=== PATIENT | male | born 1950 | race Caucasian/White ===

== ENCOUNTER → 2016-11-02 | Outpatient (CLI) | payer OTHER ==
[~2016-11-02] MED LIST: APIX1TAB3 PO; FLEC100T21 PO; LISI20TA3 PO; METO200T32 PO
[2016-11-02 09:32] LABS: HEMATOCRIT 43.4 % (42-52); MEAN CELL VOLUME 89.5 fL (80-100); MEAN CORPUSCULAR HEMOGLOBIN 29.7 pg (25-34); MEAN CORPUSCULAR HGB CONC 33.2 g/dl (32-36); PLATELET COUNT 215 K/uL (130-400); RED BLOOD COUNT 4.85 M/uL (4.7-6.1); WHITE BLOOD COUNT 7.13 K/uL (4.8-10.8)
[2016-11-02 09:55] LABS: ALB/GLOB RATIO 1.4 (0.9-2); ALKALINE PHOSPHATASE 81 U/L (45-117); ALT/SGPT 32 U/L (12-78); AST/SGOT 27 U/L (15-37); BLOOD UREA NITROGEN 27 mg/dl (7-18); CALCIUM 9.1 mg/dl (8.5-10.1); CARBON DIOXIDE 31 mmol/L (21-32); CHLORIDE 103 mmol/L (98-107); CREATININE 0.98 mg/dl (0.60-1.40); GLUCOSE 94 mg/dl (70-99); POTASSIUM 4.2 mmol/L (3.5-5.1); SODIUM 140 mmol/L (136-145)
== END | disposition home or self-care (01) ==
LOC: C.LAB1850 08:10
PROVIDERS: ATTEND Internal Medicine Cardiovascular Disease
DX: I48.91 Unspecified atrial fibrillation (principal); I10 Essential (primary) hypertension; Z79.01 Long term (current) use of anticoagulants; Z51.81 Encounter for therapeutic drug level monitoring

== ENCOUNTER → 2017-05-07 | Outpatient (CLI) | payer OTHER ==
[~2017-05-07] MED LIST changes: +METO1TAB71 PO; -METO200T32 PO
[2017-05-07 11:44] LABS: HEMATOCRIT 41.3 % (42-52); MEAN CELL VOLUME 90.2 fL (80-100); MEAN CORPUSCULAR HEMOGLOBIN 29.3 pg (25-34); MEAN CORPUSCULAR HGB CONC 32.4 g/dl (32-36); PLATELET COUNT 200 K/uL (130-400); RED BLOOD COUNT 4.58 M/uL (4.7-6.1); WHITE BLOOD COUNT 5.89 K/uL (4.8-10.8)
[2017-05-07 11:58] LABS: BLOOD UREA NITROGEN 22 mg/dl (7-18); BUN/CREATININE RATIO 23.1 (10-20); CALCIUM 9.4 mg/dl (8.5-10.1); CARBON DIOXIDE 26 mmol/L (21-32); CHLORIDE 105 mmol/L (98-107); CREATININE 0.96 mg/dl (0.60-1.40); GLUCOSE 102 mg/dl (70-99); POTASSIUM 3.8 mmol/L (3.5-5.1); SODIUM 141 mmol/L (136-145)
== END | disposition home or self-care (01) ==
LOC: C.LAB1850 10:08
PROVIDERS: ATTEND Internal Medicine Cardiovascular Disease
DX: Z00.00 Encounter for general adult medical examination without abnormal findings (principal); I48.91 Unspecified atrial fibrillation; I10 Essential (primary) hypertension; Z79.01 Long term (current) use of anticoagulants

== ENCOUNTER → 2017-11-20 | Outpatient (CLI) | payer OTHER, MEDICARE ==
[~2017-11-20] MED LIST changes: -METO1TAB71 PO; +METO200T32 PO
[2017-11-20 12:12] LABS: HEMATOCRIT 41.5 % (42-52); HEMOGLOBIN 13.8 g/dL (14.0-18.0); MEAN CELL VOLUME 90.6 fL (80-100); MEAN CORPUSCULAR HEMOGLOBIN 30.1 pg (25-34); MEAN CORPUSCULAR HGB CONC 33.3 g/dl (32-36); MEAN PLATELET VOLUME 10.4 fL (7.4-10.4); PLATELET COUNT 211 K/uL (130-400); RED CELL DISTRIBUTION WIDTH CV 13.5 % (11.5-14.5); RED CELL DISTRIBUTION WIDTH SD 44.6 fL (36.4-46.3); WHITE BLOOD COUNT 5.62 K/uL (4.8-10.8)
[2017-11-20 12:23] LABS: BLOOD UREA NITROGEN 26 mg/dl (7-18); CALCIUM 9.4 mg/dl (8.5-10.1); CARBON DIOXIDE 29 mmol/L (21-32); GLUCOSE 85 mg/dl (70-99); POTASSIUM 3.9 mmol/L (3.5-5.1); SODIUM 139 mmol/L (136-145)
== END | disposition home or self-care (01) ==
LOC: C.LAB1850 10:09
PROVIDERS: ATTEND Internal Medicine Cardiovascular Disease
DX: I48.91 Unspecified atrial fibrillation (principal); I10 Essential (primary) hypertension; Z79.01 Long term (current) use of anticoagulants

== ENCOUNTER 2018-03-18 07:58 | Emergency (ER) | payer OTHER, MEDICARE ==
[~2018-03-18] VITALS: Ht 190.5 cm; Wt 79.6 kg
[2018-03-18 08:08] VITALS: Ht 190.5 cm; Wt 79.6 kg
[2018-03-18] MEDS ORDERED: XARELTO PO (08:49)
[2018-03-18] MEDS ORDERED: LOSARTAN PO (08:49)
[2018-03-18 08:54] LABS: BASO % 0.3 %; BASO ABS # 0.02 K/uL (0-0.2); EOS % 1.5 %; EOS ABS # 0.11 K/uL (0-0.5); HEMATOCRIT 40.9 % (42-52); HEMOGLOBIN 13.8 g/dL (14.0-18.0); IG# 0.02 K/uL (0.00-0.02); LYMPH % 21.9 %; LYMPH ABS # 1.62 K/uL (1.2-3.4); MEAN CELL VOLUME 89.1 fL (80-100); MEAN CORPUSCULAR HEMOGLOBIN 30.1 pg (25-34); MEAN CORPUSCULAR HGB CONC 33.7 g/dl (32-36); MEAN PLATELET VOLUME 9.3 fL (7.4-10.4); MONO % 7.7 %; MONO ABS # 0.57 K/uL (0.11-0.59); NEUT % 68.3 %; NEUT ABS # 5.05 K/uL (1.4-6.5); PLATELET COUNT 219 K/uL (130-400); RED CELL DISTRIBUTION WIDTH CV 13.5 % (11.5-14.5); RED CELL DISTRIBUTION WIDTH SD 44.2 fL (36.4-46.3); WHITE BLOOD COUNT 7.39 K/uL (4.8-10.8)
[2018-03-18 09:03] LABS: PTT PATIENT 28.2 SECONDS (21.0-31.0)
[2018-03-18 09:10] LABS: CALCIUM 8.9 mg/dl (8.5-10.1); CREATININE 0.9 mg/dl (0.60-1.40); POTASSIUM 3.9 mmol/L (3.5-5.1); URIC ACID 6.1 mg/dl (2.6-7.2)
--- NOTE | 2018-03-18 09:13 | DIAGNOSTIC IMAGING REPORT ---
R FOOT MIN 3 VIEWS ROUTINE CLINICAL HISTORY: R foot pain COMPARISON STUDY: None. FINDINGS: No fracture or dislocation within the right foot. Mild diffuse soft tissue swelling. The Lisfranc joint is well aligned. Mild osteoarthritis within the right foot. Plantar heel spur. IMPRESSION: Mild diffuse soft tissue swelling within the right foot. No fractures. Electronically signed by: Ousmane Hernandez M.D. 03/18/2018 9:12 AM Dictated Date/Time: 03/18/2018 9:11 AM
--- NOTE | 2018-03-18 09:15 | DIAGNOSTIC IMAGING REPORT ---
RIGHT ANKLE 3 VIEWS HISTORY: R ankle pain COMPARISON: None. FINDINGS: There is no fracture or dislocation. There is diffuse soft tissue swelling. The bones are osteopenic. Mild degenerative changes at the ankle joint. No radiopaque foreign bodies. IMPRESSION: No fractures within the right ankle. Diffuse soft tissue swelling. Electronically signed by: Ousmane Hernandez M.D. 03/18/2018 9:13 AM Dictated Date/Time: 03/18/2018 9:13 AM
--- NOTE | 2018-03-18 09:26 | DIAGNOSTIC IMAGING REPORT ---
R VENOUS DOPP LOWER EXT UNILAT CLINICAL HISTORY: 67 years-old Male presenting with R lower leg/ankle/foot pain and swelling. TECHNIQUE: Real-time grayscale and color and spectral Doppler ultrasound imaging of the veins of the right lower extremity was performed. Compression and augmentation were also utilized. COMPARISON: None. FINDINGS: Right: Common femoral vein: Patent. Greater saphenous vein: Patent. Deep femoral vein: Patent. Femoral vein: Patent. Popliteal vein: Patent. Calf veins: Patent. Other: None. IMPRESSION: No evidence of deep venous thrombosis. Electronically signed by: Alon Ledezma M.D. 03/18/2018 9:25 AM Dictated Date/Time: 03/18/2018 9:25 AM
[2018-03-18 10:33] VITALS: BP 117/60; PULSE 50; TEMP 36.9; O2SAT 100
--- NOTE | 2018-03-18 12:54 | EMERGENCY ROOM VISIT NOTE ---
ED Visit Note First contact with patient: 08:11 Chief Complaint: Right foot and ankle pain with swelling of the lower leg, ankle and foot. History of Present Illness: Mr. Rinaldi is a 67-year-old white male who ambulates into the ED with the use of a cane complaining of right foot and ankle pain with lower leg, ankle and foot swelling. Starkly patient reports she has a history of osteoarthritis and gout. Patient reports 4-5 days ago he started noticing pain over the plantar surface of the foot just inferior to the first MTP joint. Within 2 days he noted that pain had resolved and now is having pain over the medial aspect of the calcaneus inferior to the ankle. This has been constant for the last 2 days. He reports at rest he is not experiencing any pain but with weightbearing and ambulation he reports he has severe pain that he describes as a sharp sensation. When he is experiencing pain he rates his discomfort 10/10. The pain is nonradiating. He has not taken any medications for pain prior to arrival at the hospital. Associated with his pain he has noted swelling over the distal third of the lower leg extending into the ankle and foot. Additionally he reports approximately 5 days ago he did strike the distal fibula just superior to the ankle on a car door and sustained a skin injury that is still present. He denies fevers, chills, sweats, skin eruptions, other foot trauma, back pain, hip pain, knee pain, previous significant injuries or surgeries to the ankle or foot, leg weakness/numbness/tingling. Review of Systems: As noted above in history of present illness. At least body systems were reviewed and found to be negative as noted above. Past Medical History: As previously noted, alcoholism, hypertension, atrial fibrillation, status post cystoscopy and unspecified right knee surgery. Current Medications: Marijuana, Allergies to Medications: Sulfa. Social History: Patient is currently retired; he feels safe in his home environment; he denies current alcohol use. Physical Examination: Vital Signs: Date Time Temp Pulse Resp B/P (MAP) Pulse Ox O2 Delivery O2 Flow Rate FiO2 03/18/18 10:33 36.9 50 20 117/60 100 03/18/18 09:32 50 20 117/60 100 03/18/18 08:08 36.9 56 20 133/70 100 Room Air GENERAL: 67-year-old male in mild to moderate distress due to pain, nontoxic- appearing, afebrile and hemodynamically stable. NEUROLOGICAL: Awake, alert and oriented to person, place and time. Answering questions appropriately and following commands. Good hand eye coordination. No focal motor sensory deficits. SKIN: Warm, dry and pink. Right Lower Leg: Just superior to the ankle patient has a roundish soft tissue injury from his strike with the car. This appears superficial. Just below the area is an area of erythema that is minimally tender and this is where the patient swelling starts for the ankle and foot. HEENT: Atraumatic and normocephalic. BACK: No tenderness over the bony spine. No CVA tenderness. THORAX: Lungs sounds are clear to auscultation and equal bilaterally with symmetrical chest wall. HEART: Regular rate and rhythm. No gallops, rubs or murmurs are appreciated. ABDOMEN: Flat, soft and nontender. Positive bowel sounds in all quadrants. No guarding, rigidity or organomegaly. RIGHT LOWER EXTREMITY: No gross bony deformity. No tenderness in the hip, thigh , knee. Over the distal aspect of the fibula patient has a soft tissue injury as noted above. It is minimally tender to palpation. Once again it is noted that just inferior there is mild erythema but the skin is not cellulitic. Extending inferiorly from this wound throughout the foot the ankle and foot are edematous but not erythematous. There is no calf tenderness or cords. He has full range of motion in flexion and extension of the knee, plantarflexion, dorsiflexion, inversion and eversion of the ankle and flexion and extension of all toes. Throughout the foot the skin was warm and pink and capillary refill was brisk. No ligamentous laxity at the level of the ankle. Minimal tenderness over the plantar surface of the first MTP joint and over the lateral aspect of the calcaneus. I do not appreciate any bony deformity or crepitus. ED Course: Patient is assessed as noted above. Patient's medication list was reviewed. Laboratory Testing: Test 03/18/18 08:40 Range/Units White Blood Count 7.39 4.8-10.8 K/uL Red Blood Count 4.59 4.7-6.1 M/uL Hemoglobin 13.8 14.0-18.0 g/dL Hematocrit 40.9 42-52 % Mean Corpuscular Volume 89.1 80-100 fL Mean Corpuscular Hemoglobin 30.1 25-34 pg Mean Corpuscular Hemoglobin Concent 33.7 32-36 g/dl Platelet Count 219 130-400 K/uL Mean Platelet Volume 9.3 7.4-10.4 fL Neutrophils (%) (Auto) 68.3 % Lymphocytes (%) (Auto) 21.9 % Monocytes (%) (Auto) 7.7 % Eosinophils (%) (Auto) 1.5 % Basophils (%) (Auto) 0.3 % Neutrophils # (Auto) 5.05 1.4-6.5 K/uL Lymphocytes # (Auto) 1.62 1.2-3.4 K/uL Monocytes # (Auto) 0.57 0.11-0.59 K/uL Eosinophils # (Auto) 0.11 0-0.5 K/uL Basophils # (Auto) 0.02 0-0.2 K/uL RDW Standard Deviation 44.2 36.4-46.3 fL RDW Coefficient of Variation 13.5 11.5-14.5 % Immature Granulocyte % (Auto) 0.3 % Immature Granulocyte # (Auto) 0.02 0.00-0.02 K/uL Prothrombin Time 10.0 9.0-12.0 SECONDS Prothromb Time International Ratio 1.0 0.9-1.1 Activated Partial Thromboplast Time 28.2 21.0-31.0 SECONDS Partial Thromboplastin Ratio 1.1 Sodium Level 138 136-145 mmol/L Potassium Level 3.9 3.5-5.1 mmol/L Chloride Level 104 98-107 mmol/L Carbon Dioxide Level 29 21-32 mmol/L Anion Gap 5.0 3-11 mmol/L Blood Urea Nitrogen 21 7-18 mg/dl Creatinine 0.90 0.60-1.40 mg/dl Est Creatinine Clear Calc Drug Dose 90.9 ml/min Estimated GFR () 102.8 Estimated GFR (Non- 88.7 BUN/Creatinine Ratio 23.4 10-20 Random Glucose 103 70-99 mg/dl Uric Acid 6.1 2.6-7.2 mg/dl Calcium Level 8.9 8.5-10.1 mg/dl Right Ankle X-Rays: Were read by myself and the radiologist showing no acute fractures or dislocations. Mild degenerative changes throughout the ankle. Bones are osteopenic. Diffuse soft tissue swelling. No foreign bodies. Right Foot X-Rays: Were read by myself and the radiologist showing no acute fractures or dislocations. Diffuse soft tissue swelling. Mild osteoarthritis within the right foot and a plantar heel spur. Right Lower Extremity Venous Doppler Ultrasound: Was reviewed by myself and read by the radiologist showing no evidence of deep vein thrombus. Patient was reassessed multiple times during his stay in the emergency department. Patient was placed in a compression stocking and trialed on a walking boot and postop shoe; he felt a postop shoe provided less pain and felt better on his foot. Patient's case was reviewed with Dr. Zuñiga; we agreed on diagnostic approach, treatment, disposition and plan. Patient was educated about today's findings and instructed on his treatment plan ; he verbalized understanding and agreement with this plan. Clinical Impression: Right ankle and foot pain. Right lower leg, ankle and foot swelling. Decision-Making: Initially my differential diagnosis I considered cellulitis, gout, ligamentous strain, muscle strain, DVT, fracture, dislocation and other causes. Disposition: Patient discharged home in stable condition; prior to departure he was reassessed and subjectively reported he was feeling better with ambulation and rated his overall discomfort 8/10. Plan: Patient was encouraged to continue his current medications as prescribed. Patient was encouraged to keep his foot elevated and use ice for pain and swelling. Patient was encouraged to use his postop shoe and stocking. Patient was encouraged use ibuprofen or acetaminophen as needed for pain. Patient was encouraged to have close follow-up with his family physician for recheck. Patient was encouraged return the ED for worsening/uncontrolled pain, worsening redness in the area of his soft tissue injury, fevers, worsening/uncontrolled swelling, foot weakness/numbness/tingling or any new/concerning symptoms.
--- NOTE | 2018-03-18 15:05 | EMERGENCY ROOM VISIT NOTE ---
ED Visit Note First contact with patient: 08:11 I have personally seen and evaluated the patient with the PA. I agree with the diagnosis and management decisions and have been personally involved in the case. Please see Geo Rutledge PA-C's notes for further details of the history, physical and visit.
== END 2018-03-18 10:36 | disposition home or self-care (01) ==
LOC: C.EDB 07:59
DX: M79.671 Pain in right foot (principal); M25.571 Pain in right ankle and joints of right foot; M79.89 Other specified soft tissue disorders; I10 Essential (primary) hypertension; I48.91 Unspecified atrial fibrillation; F10.21 Alcohol dependence, in remission

== ENCOUNTER → 2018-06-18 | Outpatient (CLI) | payer OTHER, MEDICARE ==
[~2018-06-18] MED LIST changes: -APIX1TAB3 PO; -LISI20TA3 PO; +LOSARTAN PO; -METO200T32 PO; +XARELTO PO
[2018-06-18 09:32] LABS: HEMATOCRIT 41.2 % (42-52); HEMOGLOBIN 13.6 g/dL (14.0-18.0); MEAN CELL VOLUME 90.7 fL (80-100); MEAN PLATELET VOLUME 10.6 fL (7.4-10.4); PLATELET COUNT 221 K/uL (130-400); RED CELL DISTRIBUTION WIDTH CV 13.8 % (11.5-14.5); RED CELL DISTRIBUTION WIDTH SD 45.8 fL (36.4-46.3); WHITE BLOOD COUNT 5.93 K/uL (4.8-10.8)
[2018-06-18 09:51] LABS: BLOOD UREA NITROGEN 21 mg/dl (7-18); CALCIUM 9.1 mg/dl (8.5-10.1); CARBON DIOXIDE 26 mmol/L (21-32); GLUCOSE 91 mg/dl (70-99); POTASSIUM 4.2 mmol/L (3.5-5.1); SODIUM 138 mmol/L (136-145)
== END | disposition home or self-care (01) ==
LOC: C.LAB1850 08:11
PROVIDERS: ATTEND Internal Medicine Cardiovascular Disease
DX: Z00.00 Encounter for general adult medical examination without abnormal findings (principal); I48.91 Unspecified atrial fibrillation; I10 Essential (primary) hypertension; Z79.01 Long term (current) use of anticoagulants; Z51.81 Encounter for therapeutic drug level monitoring

== ENCOUNTER 2022-04-20 10:03 | Observation (INO) ==
--- NOTE | 2022-04-15 21:23 | History and Physical Report ---
DATE OF ADMISSION: 04/20/2022 CHIEF COMPLAINT: Persistent progressive right knee pain and discomfort. 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 He has got a long history of knee problems. I scoped his knee back in January 2005. He did pretty well for the first 5 years and over the past 10 years, he reich s developed increased pain and discomfort in his knee. It is a constant pain. The more he is up and on it, the more it hurts. He limps more as the day goes on. He has nighttime discomfort. He has b een through extensive conservative treatment, cannot take NSAIDs at this point, due to being on Xarel to for cardiac issues. The shots do not help much. He would like to have his right knee fixed. Of note, he recently had his left shoulder replaced by Dr. Chao in December of this year. He has don e well. He was diagnosed with Lyme disease and treated medically for this. He has been at least 6 o r 7 months since his last antibiotics. PAST MEDICAL HISTORY: 1. History of chronic atrial fibrillation, on Xarelto. 2. Hypertension. 3. Elevated cholesterol. 4. Heart murmur. 5. History of Lyme disease. 6. Sleep apnea. PAST SURGICAL HISTORY: Include: 1. Right knee arthroscopy on 02/08/2005. 2. Colonoscopy. 3. Oral surgery. 4. Left shoulder replacement done by Dr. Chao in December 2021. ALLERGIES: SULFA. CURRENT MEDICATIONS: Include: 1. Flecainide. 2. Losartan. 3. Metoprolol. 4. Oxycodone. 5. Xarelto. 6. Tramadol. SOCIAL HISTORY: A 71-year-old male. He is . He does not smoke. FAMILY HISTORY: Noncontributory. REVIEW OF SYSTEMS: Significant for atrial fibrillation. He denies any recent chest pain or shortnes s of breath. He does have a history of Lyme disease and treated for this. No history of DVT or PE. PHYSICAL EXAMINATION: GENERAL: Shows a pleasant middle-aged male. Looks to be in good health. HEENT: Benign. NECK: Supple. No lymphadenopathy. LUNGS: Clear to auscultation. HEART: Regular rate and rhythm. ABDOMEN: Soft, nontender, nondistended. EXTREMITIES: Grossly neurovascularly intact except as follows: Examination of the right knee reveal s the patient walks with a slightly antalgic gait. He limps on the right side. He has varus alignme nt to his knee with a small varus thrust with weightbearing. Moderate-sized knee effusion. Range of motion 0 to 125. No instability. No pain with hip motion. X-RAYS: X-rays of the right knee were reviewed. It shows advanced right knee DJD. He has got compl ete loss of medial joint space. He has got osteophytes medially. He has subchondral sclerosis. Knee aspirate results were reviewed. It showed a white cell count of 3474. 31% polys. Crystal anal ysis is negative. Lyme test was negative. ASSESSMENT: A 71-year-old male with multiple medical comorbidities including atrial fibrillation, hy pertension, recent Lyme disease and sleep apnea with advanced knee degenerative joint disease. Histo ry of previous knee arthroscopy in the past. He has failed conservative measures and would like to h ave his right knee replaced. He does have a history of Lyme disease and we aspirated his knee and th ere are no signs of residual Lyme disease. PLAN: We will proceed with knee replacement. The risks and benefits of this procedure were explaine d to the patient to include but not limited to DVT, PE, , infection, neurological injury, vascul ar injury, bleeding problem, pain, limited range of motion, stiffness, failure to relieve symptoms, i ncomplete relief of symptoms, need for further surgery in the future, etc. The patient understands a nd desires to proceed. Informed consent was obtained. He is on Xarelto and he will need to stop it 3 days preop. We will use that postoperatively at a pro phylactic dose initially and then increase to therapeutic dose. He is planning on staying overnight. He is going to use [facility]. Job ID: [id number]
--- NOTE | 2022-04-17 14:08 | Anesthesiology Consultation ---
Date of Service April 17, 2022 Assessment & Plan (1) Encounter for pre-operative examination: - COVID screening: Per assessment on 04/17: No known COVID-19 positive contacts or current COVID-19 related symptoms. Travel screen negative x 2+ weeks. Patient vaccinated. Surgeon arranging preop COVID testing. Awaiting results. - Cardiology office visit (09/07/21): "Patient remains stable from a cardiac standpoint.. His exertional tolerance is stable. Patient does occasionally note some positional lightheadedness if he is bent over working in his garden and stands up suddenly. This resolves within a couple of seconds. It does not occur on a regular basis. Patient has not experienced any angina pectoris or anginal equivalent symptoms, overt signs or symptoms of heart failure, nor has he had a recurrent atrial fibrillation to his knowledge. Patient has not had any symptoms suggestive of stroke or mini stroke.. We reviewed his Echocardiogram dated 08/29/2021 in detail. The shows normal LV systolic funct ion, mild mitral regurgitation, and a mildly dilated right ventricle with normal RV systolic function. No significant change compared to 2017 echocardiogram." - S/P Left TSA reverse (01/13/22): LMA igel#5 + PNB at [facility]. No issues per post- op anesthesia progress note. Chart Review Chart Review: Acceptable Risk for Surgery (pending evaluation AM DOS) and Patient NOT seen in Pre Admission Testing History Surgery Operation Date: 04/20/22 08:50 Proposed Procedures p Right Total Knee Arthroplasty - Evan Henry MD Height/Weight Height: 6 ft 3 in Weight: 77.111 kg Allergies Allergy/AdvReac Type Severity Reaction Status Date / Time pollen extracts Allergy Unknown unknown Verified 04/17/22 12:35 Sulfa (Sulfonamide Allergy Unknown unknown Verified 04/17/22 12:35 Antibiotics) Medications Home Medications Medication Instructions Recorded Confirmed Last Taken flecainide 100 mg tablet 100 mg PO BID #180 tab 12/02/21 04/17/22 01/12/22 23:30 metoprolol succinate 50 mg 50 mg PO QPM #90 tab 12/02/21 04/17/22 01/12/22 16:30 tablet,extended release 24 hr rivaroxaban 20 mg tablet 20 mg PO QPM #90 tab 12/02/21 04/17/22 01/09/22 17:00 losartan 25 mg tablet 25 mg PO QPM 12/09/21 04/17/22 01/12/22 16:30 Wheeled Walker #1 ea 03/16/22 03/16/22 Unknown Medical Thc 1 dose INHALATION UD PRN 04/17/22 04/17/22 Unknown Past Medical History Medical History A-fib Dx 2013 Reason for Xarelto Follows with Dr. Sheldon Cardiomyopathy Tachycardia vs alcohol induced per [place] [facility] records, EF 60-65% on 08/2021 echo Gout HTN (hypertension) Controlled, stable per pt Chronic positional lightheadedness Lyme disease 2020 Osteoarthritis Sleep apnea No device Past Family History Family History Father Cerebellar ataxia Mother COPD (chronic obstructive pulmonary disease) Other No family history of adverse response to anesthesia Past Surgical History Surgical History History of arthroscopy of right knee History of cardioversion x2 History of colonoscopy History of left shoulder replacement Left TSA reverse (01/13/22): LMA igel#5 + PNB at [facility]. No issues per post-op anesthesia progress note. History of oral surgery tooth implant Social History Smoking Status: Never smoker Do You Dip or Chew Tobacco: No Hx Alcohol Use: No Hx Substance Use: Yes substance use type: marijuana Substance Use Type Other:: medical marijuana Lab Results Anesthesia Preop Results Results Anesthesia Widget: WBC 7.47 K/uL (4.8-10.8) 04/05/22 Hgb 13.6 g/dL (14.0-18.0) L 04/05/22 Hct 43.3 % (42-52) 04/05/22 Plt 290 K/uL (130-400) 04/05/22 Na 139 mmol/L (136-145) 04/05/22 K 4.1 mmol/L (3.5-5.1) 04/05/22 Cl 105 mmol/L (98-107) 04/05/22 CO2 28 mmol/L (21-32) 04/05/22 BUN 28 mg/dl (6-23) H 04/05/22 Creat 0.95 mg/dl (0.6-1.4) 04/05/22 Glucose Level 107 mg/dl (70-99(Fasting)) H 04/05/22 PT 10.8 Seconds (9.0-12.0) 04/05/22 PTT 29.6 Seconds (21.0-31.0) 04/05/22 INR 1.0 (0.9-1.1) 04/05/22 Blood Type A Positive 04/05/22 Antibody Screen NEGATIVE 04/05/22 Testing Electrocardiogram Date: 12/13/21 Sinus bradycardia with first-degree AV block at 51 bpm. RBBB with repolarization abnormality. EKG was used for preop testing prior to Left TSA (reverse) done at [facility] 01/13/22 without issue. Chest X-Ray Date: 12/13/21 The cardiomediastinal and hilar silhouettes are within normal limits. No pneumothorax, pleural effusion, airspace consolidation or overt pulmonary edema. Hyperinflation with diaphragmatic flattening. Degenerative changes of the shoulders and spine. Chronic appearing upper lumbar compression deformities. Echocardiogram Date: 08/30/21 EF 60-65% Mildly dilated left ventricle No regional wall motion abnormalities Mild cLVH Mildly dilated right ventricle Mild biatrial dilation Mild mitral regurgitation
[~2022-04-20 10:03] MED LIST changes: +ACETAMINOPHEN 500 MG TAB PO SCH; +BUPIVACAINE 0.5 % 5 MG/1 ML PF 10ML VIAL ONE; +BUPIVACAINE LIPOSOME/PF 266 MG, BUPIVACAINE/EPINEPHRINE 50 ML, SODIUM CHLORIDE 0.9% 30 ... INFIL SCH; +FAMOTIDINE 20 MG TAB PO SCH; -FLEC100T21 PO; -LOSARTAN PO; +LR 500ML BOLUS, THEN 15ML/HR IV SCH; +LR 60ML/HR IV SCH; +METOCLOPRAMIDE HCL 10 MG TABLET PO SCH; +ROPIVACAINE 0.5% 5 MG/ML 30 ML VIAL ONE; +TRANEXAMIC ACID 1,000 MG **IV Intra-op IV SCH; -XARELTO PO; +ceFAZolin 2000MG 2,000 MG/15 ML SYR IV SCH; +oxyCODONE HCL 10 MG TABCR (OxyCONTIN) PO SCH
--- NOTE | 2022-04-20 10:53 | History & Physical Bridge Note ---
Date of Service April 20, 2022 History & Physical Bridge Note I have examined the patient, reviewed the History & Physical and in the interval since the performance of the History & Physical I have noted the following changes of clinical significance: no changes noted
[2022-04-20] MEDS ORDERED: PROPOFOL IV EMULSION 10 MG/ML 20 ML VIAL IV ONE (11:57)
[2022-04-20] MEDS ORDERED: HYDROmorphone INJ 2 MG/ML SYR/VIAL IV PRN (12:14)
[2022-04-20] MEDS ORDERED: ONDANSETRON INJ 2 MG/ML 2 ML VIAL IV PRN ×2 (12:14→16:47)
[2022-04-20] MEDS ORDERED: fentaNYL citrate 100 MCG/2 ML VIAL IV PRN (12:14)
[2022-04-20] MEDS ORDERED: ATROPINE SULFATE 0.1 MG/ML 10ML SYR IV PRN (12:14)
[2022-04-20] MEDS ORDERED: ePHEDrine sulfate 50 MG/ML AMP IV PRN (12:14)
[2022-04-20] MEDS ORDERED: MIDAZOLAM HCL 1 MG/ML 2ML VIAL ONE (12:16)
[2022-04-20] MEDS ORDERED: SODIUM CHLORIDE 0.9% PF 50 ML VIAL ONE (12:23)
[2022-04-20] MEDS ORDERED: BUPIVACAINE/EPINEPHRINE 0.25% 1:200,000 30 ML VIAL ONE (12:23)
[2022-04-20] MEDS ORDERED: BUPIVACAINE LIPOSOME 1.3% 266 MG/20 ML VIAL ONE (12:24)
[2022-04-20] MEDS ORDERED: ONDANSETRON INJ 2 MG/ML 2 ML VIAL ONE (13:45)
--- NOTE | 2022-04-20 14:46 | Operative Report ---
PG Post Operative Report Pre & Post Diagnosis Operation Date: 04/20/22 12:30 Pre-Op Diagnosis: Right Knee Osteoarthrits Post-Op Diagnosis: Right Knee Osteoarthrits I identified the patient and participated in the time-out.: Yes Procedure Operation Date: 04/20/22 12:30 Actual Procedures p Right Total Knee Arthroplasty(Right) - Evan Henry MD Surgeon Evan Henry MD [employer] Technician Sam Sullivan PA-C Estimated Blood Loss 50 Findings Consistent with Post-Op Diagnosis Operative findings were advanced left knee DJD. Extensive grade 4 [id number] disease and eburnation of the medial compartment. He had some secondary changes into the lateral compartment due to his tibiofemoral subluxation. 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 Moderate-sized joint effusion. Varus deformity to his knee. Specimens Right knee sent for pathology. Drains None Anesthesia Type Spinal MAC Complications none Indications Patient is a 71-year-old gentleman whose had a long history of right knee pain discomfort. He had his right knee scoped about 15 years ago which helped for several years. The past 10 years she developed increased pain discomfort and deformity in his knee. He failed conservative measures and elected proceed with surgical treatment. Description of Procedure Operative implants consisted of: 1. Biomet Vanguard size 72.5 right posterior stabilized femoral component. 2. Biomet size 75 tibial tray. 3. 10 mm posterior stabilized polyethylene insert. 4. 34 x 8 and half all Paller patella. The patient was taken the operating, identified, placed on the operating table supine position protectors were properly padded. IV antibiotics tried by anesthesia team. Spinal anesthetic and abductor canal block had provided in the holding area. Srinivasan catheter was placed in sterile fashion. Right thigh tent was then placed in the right lower extremities and prepped and draped in usual sterile fashion. The right leg was elevated exsanguinated with use of an Esmarch in terms playset 300 mmHg. An anterior approach to the right knee was then performed to longitudinal incision centered over the patella. Sharp dissection was carried through subcutaneous tissue down the extensor mechanism. Medial parapatellar arthrotomy incision was made. Some subperiosteal dissection was carried out medially. The fat pad was dissected from Neath patella tendon. Lateral patellofemoral ligament was released. Patella subluxated laterally and the knee was flexed. The osteophytes were taken off distal femur. The ACL and PCL were released from the distal femur and the tibia subluxated anteriorly. The external tibial alignment jig was then placed in the interface the tibia and adjusted 16 mm medially. Proximal tibial cut was made to remove about a millimeter bone from most deficient aspect medial tibial plateau. Tibia was sized to a size 75. Attention drawn the femur. The distal femur was entered with a sharp drill. The intramedullary canal was suction. A right 6 degree valgus cutting guide was placed. Distal femoral cutting block was pinned in place. Distal femoral cut was made to take an additional 3 mm of bone off distal femur. The femur was sized to a size 72.5. The AP cutting block was pinned parallel to the epicondylar axis which was 4 degrees of external rotation. Anterior cut, anterior chamfer, posterior cut, posterior chamfer cuts were made. The box cutting guide was placed in a just slight lateral box cut was made. The knee was flexed. The remnants of the medial and lateral menisci were excised. The osteophytes taken off the posterior aspect the femur. A trial femoral component was placed. The tibial tray was pinned in in maximum external rotation and the drill and stem punch used to create defect in proximal tibia for the tibial tray. The knee was then trialed with a 10 mm insert fit most appropriately. Attention drawn the patella. The patella was cleaned of all soft tissues. Patella thickness measured 24 mm in thickness was cut down to 14. Was sized to a size 34 patella. The lug holes were drilled for the 34 patella. The lateral osteophyte was removed. Patella button was placed. Knee was taken through range of motion patella tracked nicely with no thumbs test. Attention drawn to placing permanent components. Nupathe all trial components were removed. A bone plug was placed in the distal femur limit blood loss. Double batch Palacos G cement was mixed. A Biomet Vanguard size 72.5 right posterior stabilized femoral component, size 75 tibial tray, a 10 mm posterior stabilized polyethylene insert, and a 34 x 8 and half all Paller patella then cemented in place. Knee was brought out into full extension total cement hardened. Final cement check was then performed. Pericapsular tissues were injected with total 100 cc of combination of 20 cc of Exparel, 30 cc normal saline, 50 cc of quarter percent Marcaine with epinephrine. Patient did receive 1 g tranexamic acid. The tourniquet was then let down for final tourniquet time of 58 minutes. Hemostasis reduced electrocautery. Extensor mechanism closed with combination 1 PDS suture #1 Vicryl suture in caqimw-wa-ajown fashion. Extensor mechanism checked found to be intact and subcutaneous tissue then closed with 2 Dexon suture in a buried interrupted fashion skin was closed skin aranza. Leg was then cleaned and dried a sterile dressing was Xeroform, 4 x 4's, sterile cast padding, Toño bandage were applied. Patient then transferred to the recovery room in stable condition. Patient tolerated procedure well and there were no complications. Sam Sullivan, my physician insurance sales assistant, was present for the entire procedure. His assistance was essential and required for appropriate patient positioning, prepping and draping, surgical exposure, performing the technical details of the operation, placement the implants, closure of the wound, and placement of the sterile bandage. I attest to the content of the Intraoperative Record and any orders documented therein. Any exceptions are noted below.
--- NOTE | 2022-04-20 15:14 | XRay Report ---
XR knee RT 1 or 2V routine HISTORY: 71 years-old Male Surgical Post Op right knee total joint arthroplasty COMPARISON: None TECHNIQUE: 2 views of the right knee FINDINGS: Total joint arthroplasty with patellar resurfacing. Anterior midline skin aranza are noted along wit h expected postoperative soft tissue swelling with deep tissue air. No acute fracture or unexpected o paque foreign body. IMPRESSION: Total joint arthroplasty with expected postoperative changes. ACT 112: Negative or not required by law. The above report was generated using voice recognition software. It may contain grammatical, syntax o r spelling errors. Electronically signed by: Anthony Sinha M.D. 04/20/2022 3:13 PM
--- NOTE | 2022-04-20 16:30 | Anesthesiology Progress Note ---
Date of Service April 20, 2022 Anesthesia Post Procedure Vital Signs Vital Signs: Temp Pulse Pulse Resp BP Pulse Ox 04/20/22 16:15 60 20 129/70 97 04/20/22 16:05 36.3 C L 59 L 20 130/60 97 04/20/22 15:55 55 L 16 122/74 97 04/20/22 15:45 66 18 120/72 98 04/20/22 15:35 58 L 15 112/71 96 04/20/22 15:25 65 15 113/76 97 04/20/22 15:15 66 18 134/77 99 04/20/22 15:05 63 21 127/72 98 04/20/22 14:55 64 13 135/72 99 04/20/22 14:45 64 18 129/63 100 04/20/22 14:38 36 C L 59 L 17 119/70 100 04/20/22 10:26 36.4 C L 54 L 20 127/84 100 Transfer of Care Handoff Completed per policy Notes Mental Status: alert / awake / arousable and participated in evaluation Patient Amnestic to Procedure: Yes Nausea / Vomiting: adequately controlled Pain: adequately controlled Airway Patency, RR, SpO2: stable & adequate BP & HR: stable & adequate Hydration State: stable & adequate Anesthetic Complications: no major complications apparent
[2022-04-20] MEDS ORDERED: bisacodyL 10 MG SUPP PR PRN (16:47)
[2022-04-20] MEDS ORDERED: ALUMINUM/MAGNESIUM SUSP 30 ML UDC PO PRN (16:47)
[2022-04-20] MEDS ORDERED: MAGNESIUM HYDROXIDE SUSP 30 ML UDC PO PRN (16:47)
[2022-04-20] MEDS ORDERED: NALOXONE HCL 0.4 MG/1 ML VIAL/CARP IV PRN (16:47)
[2022-04-20] MEDS ORDERED: METOCLOPRAMIDE HCL INJ 5 MG/ML 2 ML VIAL IV PRN (16:47)
[2022-04-20] MEDS ORDERED: HYDROmorphone INJ 0.5 MG/0.5 ML SYR IV PRN (16:47)
[2022-04-20] MEDS: [UNRECOGNIZED DRUG - REMARK] SCH ×3 (16:50→19:18)
[2022-04-20] MEDS ORDERED: METOPROLOL SUCC 50MG EXT REL TAB PO SCH ×2 (17:00→21:00)
[2022-04-20] MEDS ORDERED: LOSARTAN POTASSIUM 25 MG TAB PO SCH ×2 (17:00→21:00)
[2022-04-20] MEDS ORDERED: MEDICAL MARIJUANA INH PRN (17:04)
[2022-04-20] MEDS ORDERED: Nursing to Pharmacy Communication SCH (17:15)
[2022-04-20] MEDS: FLECAINIDE ACETATE 100 MG TABLET PO SCH (18:07)
[2022-04-20] MEDS: SODIUM CHLORIDE 0.9% 1000ML 1,000 ML IV SCH (18:08)
[2022-04-20] MEDS: ASCORBIC ACID 500 MG TAB PO SCH (18:08)
[2022-04-20] MEDS: KETOROLAC TROMETHAMINE 15 MG/ML VIAL IV SCH ×2 (18:09→23:04)
[2022-04-20] MEDS: ceFAZolin 1000MG 1,000 MG/7.5 ML SYR IV SCH (19:44)
[2022-04-20] MEDS ORDERED: TRANEXAMIC ACID / 0.7% NACL 1,000 MG/100 ML BAG IV SCH (20:45)
[2022-04-20] MEDS ORDERED: FLECAINIDE ACETATE 100 MG TABLET PO SCH (21:00)
[2022-04-20] MEDS ORDERED: SENNA 8.6 MG TAB PO SCH (21:00)
[2022-04-20] MEDS: traMADol HCL 50 MG TABLET PO PRN (21:10)
[2022-04-20] MEDS: DOCUSATE SODIUM 100 MG CAP PO SCH (21:10)
[2022-04-20] MEDS: ACETAMINOPHEN 500 MG TAB PO SCH (23:04)
[2022-04-21] MEDS: SODIUM CHLORIDE 0.9% 1000ML 1,000 ML IV SCH (03:52)
[2022-04-21] MEDS: ceFAZolin 1000MG 1,000 MG/7.5 ML SYR IV SCH (04:04)
[2022-04-21] MEDS: ACETAMINOPHEN 500 MG TAB PO SCH (05:46)
[2022-04-21] MEDS: KETOROLAC TROMETHAMINE 15 MG/ML VIAL IV SCH (05:47)
[2022-04-21 06:25] LABS: Hematocrit (blood only) 40.6 % (42-52); Mean Corpuscular Hemoglobin 27.8 pg (25-34); Mean Corpuscular Volume 86.8 fL (80-100); Mean Platelet Volume 9.7 fL (7.4-10.4); Platelet Count 240 K/uL (130-400); RDW Coefficient of Variation 14.7 % (11.5-14.5); RDW Standard Deviation 46.4 fL (36.4-46.3); Red Blood Count 4.68 M/uL (4.7-6.1); White Blood Count 9.07 K/uL (4.8-10.8)
[2022-04-21 06:58] LABS: BUN Creatinine Ratio 25.5 (10-20); Calcium 8.4 mg/dl (8.5-10.1); Creatinine Clr Calc Pharmacy 67.2 ml/min; Est GFR (African American) 78.4 ml/min; Est GFR (Non-African American) 67.7 ml/min; Potassium 4.6 mmol/L (3.5-5.1)
[2022-04-21] MEDS ORDERED: dexAMETHasone 10 MG in SYRINGE 0 ML IV SCH (08:00)
[2022-04-21] MEDS: ASCORBIC ACID 500 MG TAB PO SCH (08:35)
[2022-04-21] MEDS: traMADol HCL 50 MG TABLET PO PRN (08:35)
[2022-04-21] MEDS: FLECAINIDE ACETATE 100 MG TABLET PO SCH (08:35)
[2022-04-21] MEDS: DOCUSATE SODIUM 100 MG CAP PO SCH (08:36)
[2022-04-21] MEDS ORDERED: MULTIVITAMIN TAB PO SCH (09:00)
[2022-04-21] MEDS ORDERED: DOCUSATE SODIUM/SENNA 50/8.6MG TAB PO SCH (09:00)
--- NOTE | 2022-04-21 09:04 | Progress Notes ---
DATE OF SERVICE: 04/21/2022. SUBJECTIVE: A 71-year-old gentleman postoperative day 1 from a right knee replacement. He is doing well. He ____ fairly mild pain. No chest pain or shortness of breath. Not feeling dizzy or lighthe aded. OBJECTIVE: VITAL SIGNS: Temperature 37.0. Vital signs are stable. GENERAL: Physical examination shows a pleasant middle-aged male. He is sitting up in bed and looks quite comfortable. LUNGS: Clear to auscultation. HEART: Has a regular rate and rhythm. ABDOMEN: Soft, nontender, nondistended. EXTREMITIES: Grossly neurovascularly intact except as follows: Examination of the right leg reveals the leg to be well aligned. Dressing is clean, dry, and intact. He can dorsiflex and plantarflex h is foot appropriately. He can do a good straight leg raise. LABORATORY DATA: Hemoglobin 13.0. Hematocrit 40.6. Electrolytes are stable. ASSESSMENT: A 71-year-old gentleman, postoperative day 1 from right knee replacement. He is doing w ell. PLAN: 1. DVT prophylaxis to include thigh-high TEDs, SCDs, and we will start him back on his anticoagulati on. We will go at a prophylactic dose today and then back to a therapeutic dose tomorrow. 2. PT, OT, weightbear as tolerated. Right total knee protocol. 3. Pain control, doing well with current pain regimen. 4. Disposition: Plan to discharge to home with some home health likely later today. Job ID: [id number]
[2022-04-21] MEDS ORDERED: RIVAROXABAN 10 MG TABLET PO SCH (15:00)
== END 2022-04-21 12:37 | disposition home health service (06) ==
LOC: ASU 10:03 → 3E 10:03